=== PATIENT | male | born 2000 | race Caucasian/White ===

== ENCOUNTER 2025-02-18 18:56 | Emergency (ER) | payer BC, SELFPAY ==
[2025-02-18 18:58] VITALS: BP 143/92
--- NOTE | 2025-02-18 20:45 | ED.GENMED ---
History of Present Illness
General
Chief Complaint: Suicidal Ideation
Source: patient and family
Exam Limitations: none
Time Seen by Provider: 02/18/25 19:43
Nursing documentation reviewed up to this point in time: agreed with
History of Present Illness
History of Present Illness:
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
although not a psychiatrist
Mother and patient wonder if he has bipolar, never formally diagnosed, sees a therapist apparently has some sort of genetic testing,
Past History
Past History
ED Past Medical History: Psychiatric
Social History
Tobacco: Non-smoker
Alcohol: Occasional
Drug: Marijuana
Personal: Single
Living: with family
Employment: Employed
Review of Systems
Review of Systems
All Other Systems: Not applicable
Constitutional: Reports sleep disturbance
Psychiatric: Reports depression and anxiety; Denies suicidal or hallucinations
Phy Exam
Physical Exam
Physical Exam:
Physical Exam
General: 24 male poor eye contact cooperative does not appear to be intoxicated
Neck: No jaundice
Heart: Regular
Lungs: no acute respiratory distress.
Neuro: alert and oriented. no focal neurological deficits
Skin: no rash
Psychiatric: Cooperative flat affect denies suicidal thoughts at this time not appear to be hallucinating
Extremities: no edema.
Course
Orders/Labs/Results
Orders:
Orders
02/18/25 20:27
Crisis Consult Urgent
Reason for Consult: SI-can you have telepsych see him? thanks
02/18/25 20:45
Telemedicine Psychiatry Conslt Urgent
Service Line: Psychiatric
Nursing Station
Ordering Physician: Floyd Carter
Referring Physician
Cart Name: Lee
Psych Consult Reason: Suspect self/harm others
Psychiatry Consult Location: ED
Patient Needs to be Seen Emergently: Yes
Patient Admitted for NonPsychiatric Reasons: No
Patient in Restraints: No
Patient Requires a Sheet Rock Taper: No
Patient's Legal Status is Involuntary: No
Patient Requires a Guardian: No
Vital Signs
Initial and Last Documented VS:
Initial Vital Signs
Temp Pulse Resp BP Pulse Ox
98.4 F 71 16 143/92 98
02/18/25 18:58 02/18/25 18:58 02/18/25 18:58 02/18/25 18:58 02/18/25 18:58
Last Documented Vital Signs
Temp Pulse Resp BP Pulse Ox
98.4 F 71 16 143/92 98
02/18/25 18:58 02/18/25 18:58 02/18/25 18:58 02/18/25 18:58 02/18/25 18:58
MDM/Problems Addressed
Differential Diagnosis Includes:
Anxiety depression bipolar
MDM/Problems Addressed:
Mental health
Chronic conditions affecting care: Psychiatric illness
Acute Exacerbation and/or Progression of Chronic Illness: Psychiatric illness
*Pulse Oximetry
Patient hypoxic: no
*Critical Care Note
Total Time (30-74mins, 75-104mins- exclusive of procedures): Not Applicable
Update Note
Update Note:
Update, the patient needs to see a psychiatrist to get diagnosis and started on pharmacologic therapy he is only on nonpharmacologic therapy now
9:30 PM, multiple conversations with crisis, patient is refused to wait for telepsychiatry cleared for outpatient follow-up with an IOP
ED Attending Note
-
Portions of this chart may have been created with voice recognition software.� Occasional wrong word or��sound alike� substitutions may have occurred due to the inherent limitations of voice recognition software.
Discharge Plan
Departure
Patient Disposition: Home (Routine Discharge)
Date of Disposition: 02/18/25
Time of Disposition: 21:34
Patient with high blood pressure during this ER visit?: No
Condition: Good
Discharge Problem:
Depression
Instructions: Depression, Adult (DC), Suicide Prevention
Referrals:
Nicolette Walden MD [Family Provider] -
Activity Restrictions/Additional Instructions:
Follow-up with your therapist and with the resources given to you by Jannie mane
Interventions
Interventions:
*Risk Screen - Suicide Last Done: 02/18/25 18:59
*General Assessment Last Done: 02/18/25 20:01
*Neglect/Abuse Screening Last Done: 02/18/25 19:00
*ED- Fall Risk Assessment Last Done: 02/18/25 20:01
*ED COVID-19 Vaccine History Last Done: 02/18/25 20:01
ED-Psychological Assessment Last Done: 02/18/25 20:01
Discharge Date and Time
Print Language: [id number]
== END 2025-02-18 22:36 | disposition home or self-care (01) ==
LOC: EMR 18:56
PROVIDERS: EMERGENCY PHYSICIAN Emergency Medicine; FAMILY PHYSICIAN Family Medicine
DX: F32.A Depression, unspecified (principal)
CPT/HCPCS: 99283